=== PATIENT | female | born 2000 | race Caucasian/White ===

== ENCOUNTER 2020-04-18 20:37 | Emergency (ER) | payer OTHER ==
[~2020-04-18] VITALS: Ht 160 cm; Wt 77.1 kg
[~2020-04-18 20:37] MED LIST: IBUPROFEN400 MG PO; PRILOSEC20 MG PO; ZOFRAN ODT4 MG SL
[2020-04-18] MEDS ORDERED: SPRINTEC1 EACH PO (20:57)
[2020-04-18] MEDS ORDERED: SERTRALINE HCL25 MG PO (20:57)
[2020-04-18] MEDS ORDERED: KEFLEX500 MG PO (21:17)
[2020-04-18] MEDS ORDERED: PYRIDIUM200 MG PO (21:17)
== END 2020-04-18 21:29 | disposition home or self-care (01) ==
LOC: ED 20:37
DX: N30.91 Cystitis, unspecified with hematuria (principal); F41.9 Anxiety disorder, unspecified; F32.9 Major depressive disorder, single episode, unspecified; Z79.899 Other long term (current) drug therapy
CPT/HCPCS: 81001; 84703; 87077; 87088; 87186; 99283

== ENCOUNTER 2020-07-12 19:34 | Emergency (ER) | payer OTHER ==
[~2020-07-12] VITALS: Ht 160 cm; Wt 77.1 kg
[~2020-07-12 19:34] MED LIST changes: +KEFLEX500 MG PO; +PYRIDIUM200 MG PO; +SERTRALINE HCL25 MG PO; +SPRINTEC1 EACH PO
== END 2020-07-12 19:56 | disposition home or self-care (01) ==
LOC: ED 19:34
DX: R10.13 Epigastric pain (principal); F32.9 Major depressive disorder, single episode, unspecified; F41.9 Anxiety disorder, unspecified; Z79.899 Other long term (current) drug therapy
CPT/HCPCS: 99283

== ENCOUNTER 2020-07-31 16:00 | Emergency (ER) | payer OTHER ==
[~2020-07-31] VITALS: Ht 160 cm; Wt 81.7 kg
--- OUTSIDE RECORDS SUMMARY | 2020-07-31 16:04 | XMS ---
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 [place] VISIT COUNT (12 MO.) 3 [facility] TOTAL 3 NOTE: Visits indicate total known visits. ED/UCC VISIT TRACKING (12 MO.) 07/31/2020 16:01 [facility] [place] TYPE: Emergency COMPLAINT: - IRREGULAR SPOTTING 07/12/2020 19:35 [facility] [place] TYPE: Emergency COMPLAINT: - HEARTBURN/DIARRHEA DIAGNOSES: - Heartburn - Anxiety disorder, unspecified - Major depressive disorder, single episode, unspecified - Other ocean transportation intermediary (current) drug therapy - Epigastric pain 04/18/2020 20:37 [facility] [place] TYPE: Emergency COMPLAINT: - URINE PROBLEM DIAGNOSES: - Major depressive disorder, single episode, unspecified - Dysuria - Anxiety disorder, unspecified - Other ocean transportation intermediary (current) drug therapy - Cystitis, unspecified with hematuria INPATIENT VISIT TRACKING (12 MO.) No inpatient visits to display in this time frame [email or web address]
== END 2020-07-31 20:18 | disposition home or self-care (01) ==
LOC: ED 16:00
DX: N92.5 Other specified irregular menstruation (principal); F41.9 Anxiety disorder, unspecified; F32.9 Major depressive disorder, single episode, unspecified; Z79.899 Other long term (current) drug therapy
CPT/HCPCS: 84703; 87070; 87110; 87140; 87205; 87491; 87591; 99284

== ENCOUNTER 2022-12-31 11:21 | Emergency (ER) | payer BC, OTHER ==
[~2022-12-31] VITALS: Ht 160 cm; Wt 90.2 kg
--- OUTSIDE RECORDS SUMMARY | 2022-12-31 11:24 | XMS ---
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 Care History Medical/Surgical 08/03/2020 [facility] - Patient is currently established with [facility]. If patient is seen in the ED during business hours. Please contact [facility] at [facility]. Care Recommendation: If this patient has had 5 or more Emergency Department visits in the last 12 months.\T\nbsp; Patient will require education on the scope and purpose of the ED as an acute care provider not a Primary Care Provider and should not be utilized for chronic conditions.\T\nbsp; These are guidelines and the provider should exercise clinical judgment when providing care. E.D. VISIT COUNT (12 MO.) 1 [facility] TOTAL 1 NOTE: Visits indicate total known visits. ED/UCC VISIT TRACKING (12 MO.) 12/31/2022 11:21 [facility] TYPE: Emergency COMPLAINT: - SORE THROAT INPATIENT VISIT TRACKING (12 MO.) No inpatient visits to display in this time frame [email or web address]
[2022-12-31] MEDS ORDERED: AMOX TR-K CLV1 EAC1 PO (11:46)
[2022-12-31] MEDS ORDERED: GABAPENTIN300 MG PO (11:46)
[2022-12-31] MEDS ORDERED: DULOXETINE HCL30 MG PO (11:47)
[2022-12-31] MEDS ORDERED: BUPROPION XL300 MG PO (11:47)
== END 2022-12-31 13:27 | disposition home or self-care (01) ==
LOC: ED 11:21
DX: B27.90 Infectious mononucleosis, unspecified without complication (principal); Z79.899 Other long term (current) drug therapy
CPT/HCPCS: 36415; 80048; 85025; 86308; 99283